=== PATIENT | male | born 1980 | race Caucasian/White ===

== ENCOUNTER → 2023-10-14 10:54 | Outpatient (REF) | payer OTHER, SELFPAY | LOC: EMG 10:54 | PROVIDERS: ATTENDING PHYSICIAN Physician Assistant Medical | DX: M62.838 Other muscle spasm (principal); R20.0 Anesthesia of skin | CPT/HCPCS: 95886; 95911 ==

== ENCOUNTER → 2024-04-01 14:33 | Outpatient (REF) | payer SELFPAY | LOC: HWRAD 14:33 | PROVIDERS: ATTENDING PHYSICIAN Physician Assistant Medical | DX: E78.2 Mixed hyperlipidemia (principal) | CPT/HCPCS: 75571 ==